=== PATIENT | male | born 1990 | race African-American/Black ===

== ENCOUNTER 2020-11-28 01:50 | Emergency (ER) | payer SELFPAY ==
[2020-11-28 01:51] VITALS: BP 117/80; PULSE 68; RESP 18; TEMP 36.3; O2SAT 100
--- NOTE | 2020-11-28 02:07 | PC.NURSE ---
Pt c/o dental pain and abcess starting today. States he has had one before and was prescribed antibiotics.
--- NOTE | 2020-11-28 02:29 | ED.DENTAL ---
HPI - Dental/Oral General Chief complaint: Dental/Oral Stated complaint: dental pain Time Seen by Provider: 11/28/20 02:21 History of Present Illness HPI Narrative: Patient presents with concern for a dental infection. Reports he has had symptoms several years ago and it feels similar to his prior. Patient reports he is now going to try and find a density assist with his symptoms. Reports his symptoms started this morning very achy, constant, no radiation, worse with chewing on that side. Denies any fevers, cough, congestion. Denies any trauma to the area he denies any difficulty with swallowing Teeth map: 1. Related Data Allergies Allergy/AdvReac Type Severity Reaction Status Date / Time No Known Allergies Allergy Verified 11/28/20 01:54 Review of Systems Review of Systems: CONSTITUTIONAL: Denies fever, chills, or sweats. EYES: Denies visual changes, redness, or discharge. ENT: Denies rhinorrhea, congestion, sore throat, or otalgia. GASTROINTESTINAL: Denies abdominal pain, nausea, vomiting, or diarrhea. SKIN: Denies rash or itching. MUSCULOSKELETAL: Denies back pain, joint pain, or myalgia. NEUROLOGIC: Denies headache, numbness, dizziness, or weakness. PMFSH Social History Social History Gender identity (if verbalized by the patient): Male Sexual Orientation (if Verbalized by the Patient): Straight or Heterosexual Exam Narrative: GENERAL: Well-appearing, well-nourished, and in no acute distress. HEAD: Normocephalic, atraumatic. EYES: PERRLA and EOMI. ENT: Nares clear, no rhinorrhea or epistaxis. Mucous membranes moist. Fractured teeth noted in the right lower jaw with gums having some erythema and edema no active purulent material discharge with palpation. There is tenderness palpation around tooth 30 and 29 NECK: Supple. No masses. No JVD EXTREMITIES: Normal range of motion. No edema. SKIN: Warm, dry, no rash. NEURO: No focal deficits. Alert and oriented x3. PSYCH: Normal mood and affect. Course Vital Signs Vital signs: Vital Signs Temperature 36.3 C L 11/28/20 01:51 Pulse Rate 68 11/28/20 01:51 Respiratory Rate 18 11/28/20 01:51 Blood Pressure 117/80 11/28/20 01:51 Pulse Oximetry 100 11/28/20 01:51 Temperature 36.3 C L 11/28/20 01:51 Pulse Rate 68 11/28/20 01:51 Respiratory Rate 18 11/28/20 01:51 Blood Pressure 117/80 11/28/20 01:51 Pulse Oximetry 100 11/28/20 01:51 MDM - Dental/Oral MDM Narrative Medical decision making narrative: H&P as above, vss, pt looks clinically well, exam poor dentition and edema on the right lower jaw, labs/img considered. Symptomatic relief available as needed, analgesia declined by patient on reevaluation pt continues to looks clinically well. Suspect dental abscess, dns severe sepsis, , airway compromise. plan to tx/monitor as op w/ pcm f/u findings/plan discussed with pt, pt agree/comfortable with plan, return precautions given Discharge Plan Discharge Clinical Impression: Dental abscess Patient Disposition: Home, Self-Care Condition: Improved Instructions: Antibiotic Form, Dental Abscess (ED) Additional Instructions: Please return if your symptoms worsen or fail to improve. If you develop a fever, can not eat/drink anything or if you have any other concerns. Prescriptions: New amoxicillin-pot clavulanate [Augmentin] 875-125 mg tablet 1 tablet PO Q12H Qty: 14 RF: 0 Follow-up/Referrals: PHYSICIAN,[employer] [Primary Care Provider] - Time of Disposition: 02:32
== END 2020-11-28 03:00 | disposition home or self-care (01) ==
PROVIDERS: Emergency Provider Emergency Medicine
DX: K04.7 Periapical abscess without sinus (principal)
CPT/HCPCS: 99283